=== PATIENT | male | born 1960 | race African-American/Black ===

== ENCOUNTER 2020-11-10 10:27 | Inpatient (IN) | payer OTHER ==
[2020-11-10 11:45] VITALS: BMI 26.6
[2020-11-10] MEDS ORDERED: ONDANSETRON *ODT* 4 MG TABLET SL PRN (12:21)
[2020-11-10] MEDS ORDERED: NICOTINE POLACRILEX 2 MG GUM BUC PRN (12:21)
[2020-11-10] MEDS ORDERED: IBUPROFEN 400 MG TABLET (FP) PO PRN (12:21)
[2020-11-10] MEDS ORDERED: METHOCARBAMOL 500 MG TABLET PO PRN (12:21)
[2020-11-10] MEDS ORDERED: BISMUTH SUBSALICYLATE 262 MG/15 ML BTL PO PRN (12:21)
[2020-11-10] MEDS ORDERED: METHADONE HCL 10 MG TABLET (FOR DETOX USE ONLY) PO ONE (12:21)
[2020-11-10] MEDS ORDERED: ACETAMINOPHEN 325 MG TABLET (FP) PO PRN ×2 (12:21)
[2020-11-10] MEDS ORDERED: MENTHOL/PHENOL 1 EACH UD MM PRN (12:21)
[2020-11-10] MEDS ORDERED: MAGNESIUM CITRATE 300 ML BOTTLE PO PRN (12:21)
[2020-11-10] MEDS ORDERED: MAGNESIUM HYDROX 2400MG/30ML ORAL SUSPENSION 30 ML CUP PO PRN (12:21)
[2020-11-10] MEDS ORDERED: cloNIDine HCL 0.1 MG TABLET PO PRN (12:21)
[2020-11-10] MEDS ORDERED: MAG HYDROX/AL HYDROX/SIMETH 30 ML UNIT-DOSE CUP PO PRN (12:21)
[2020-11-10] MEDS ORDERED: amLODIPine BESYLATE 5 MG TABLET (FP) ONE (12:23)
[2020-11-10] MEDS: NICOTINE 14 MG/24 HOURS TOPICAL PATCH TD SCH (13:41)
[2020-11-10] MEDS: amLODIPine BESYLATE 5 MG TABLET (FP) PO SCH (13:41)
[2020-11-10] MEDS: hydrOXYzine PAMOATE 25 MG CAPSULE (FP) PO SCH ×3 (13:41→22:04)
[2020-11-10 14:28] LABS: HEMATOCRIT 41.1 % (35.4-49); HEMOGLOBIN 13.2 GM/dL (11.7-16.9); MCH 27.6 pg (25.7-33.7); MCHC 32.2 g/dl (32.0-35.9); MEAN CELL VOLUME 85.6 fl (80-96); MEAN PLT VOLUME 8.2 fl (7.5-11.1); PLATELET COUNT 333 K/MM3 (134-434); RBC 4.79 M/mm3 (4.00-5.60); RDW 16.5 % (11.9-15.9); WHITE BLOOD COUNT 6.3 K/mm3 (4.0-10.0)
[2020-11-10 14:30] LABS: POTASSIUM 4.2 mmol/L (3.5-5.1)
[2020-11-10 14:32] LABS: ALBUMIN 3.6 g/dl (3.4-5.0); CALCIUM 9.4 mg/dL (8.5-10.1)
[2020-11-10 14:36] LABS: CREATININE 0.9 mg/dL (0.55-1.3)
[2020-11-10 14:37] LABS: BILIRUBIN,TOTAL 0.2 mg/dL (0.2-1); TOT PROT 7.1 g/dl (6.4-8.2)
[2020-11-10] MEDS: MELATONIN 5 MG TABLETS PO SCH (22:04)
[2020-11-10] MEDS: THIAMINE HCL 100 MG TABLET (FP) PO SCH (22:04)
[2020-11-11] MEDS: hydrOXYzine PAMOATE 25 MG CAPSULE (FP) PO SCH ×5 (05:24→22:11)
[2020-11-11] MEDS ORDERED: METHADONE HCL 5 MG TABLET (FOR DETOX USE ONLY) ONE (09:27)
[2020-11-11] MEDS ORDERED: METHADONE HCL 10 MG TABLET (FOR DETOX USE ONLY) ONE (09:27)
[2020-11-11] MEDS ORDERED: METHADONE (DETOX) 20 MG, METHADONE (DETOX) 5 MG PO ONE (10:00)
[2020-11-11] MEDS: amLODIPine BESYLATE 5 MG TABLET (FP) PO SCH (10:19)
[2020-11-11] MEDS: NICOTINE 14 MG/24 HOURS TOPICAL PATCH TD SCH (10:19)
[2020-11-11] MEDS: PRENATAL VITAMINS W/ FOLIC ACID TABLET (FP) PO SCH (10:19)
[2020-11-11] MEDS ORDERED: cloNIDine HCL 0.1 MG TABLET PO PRN (10:38)
[2020-11-11] MEDS: MELATONIN 5 MG TABLETS PO SCH (22:11)
[2020-11-11] MEDS: THIAMINE HCL 100 MG TABLET (FP) PO SCH (22:11)
[2020-11-12] MEDS: hydrOXYzine PAMOATE 25 MG CAPSULE (FP) PO SCH ×5 (05:42→23:08)
[2020-11-12] MEDS ORDERED: METHADONE HCL 10 MG TABLET (FOR DETOX USE ONLY) PO ONE (10:00)
[2020-11-12] MEDS: NICOTINE 14 MG/24 HOURS TOPICAL PATCH TD SCH (10:29)
[2020-11-12] MEDS: PRENATAL VITAMINS W/ FOLIC ACID TABLET (FP) PO SCH (10:29)
[2020-11-12] MEDS: amLODIPine BESYLATE 10 MG TABLET (FP) PO SCH (10:30)
[2020-11-12] MEDS: guaiFENesin 600 MG TABLET.ER (FP) PO SCH ×2 (15:34→23:08)
[2020-11-12] MEDS ORDERED: MASKS NR ONE (18:47)
[2020-11-12] MEDS: THIAMINE HCL 100 MG TABLET (FP) PO SCH (23:08)
[2020-11-12] MEDS: MELATONIN 5 MG TABLETS PO SCH (23:08)
[2020-11-13] MEDS: hydrOXYzine PAMOATE 25 MG CAPSULE (FP) PO SCH ×5 (05:28→22:20)
[2020-11-13] MEDS ORDERED: METHADONE HCL 5 MG TABLET (FOR DETOX USE ONLY) ONE (08:40)
[2020-11-13] MEDS ORDERED: METHADONE HCL 10 MG TABLET (FOR DETOX USE ONLY) ONE (08:40)
[2020-11-13] MEDS: amLODIPine BESYLATE 10 MG TABLET (FP) PO SCH (09:19)
[2020-11-13] MEDS: guaiFENesin 600 MG TABLET.ER (FP) PO SCH ×2 (09:19→22:20)
[2020-11-13] MEDS: PRENATAL VITAMINS W/ FOLIC ACID TABLET (FP) PO SCH (09:20)
[2020-11-13] MEDS: NICOTINE 14 MG/24 HOURS TOPICAL PATCH TD SCH (09:20)
[2020-11-13] MEDS ORDERED: METHADONE (DETOX) 10 MG, METHADONE (DETOX) 5 MG PO ONE (10:00)
[2020-11-13] MEDS: THIAMINE HCL 100 MG TABLET (FP) PO SCH (22:20)
[2020-11-13] MEDS: MELATONIN 5 MG TABLETS PO SCH (22:20)
[2020-11-14] MEDS: hydrOXYzine PAMOATE 25 MG CAPSULE (FP) PO SCH ×5 (05:39→22:10)
[2020-11-14] MEDS ORDERED: METHADONE HCL 10 MG TABLET (FOR DETOX USE ONLY) PO ONE (10:00)
[2020-11-14] MEDS: PRENATAL VITAMINS W/ FOLIC ACID TABLET (FP) PO SCH (10:03)
[2020-11-14] MEDS: guaiFENesin 600 MG TABLET.ER (FP) PO SCH ×2 (10:03→22:10)
[2020-11-14] MEDS: amLODIPine BESYLATE 10 MG TABLET (FP) PO SCH (10:03)
[2020-11-14] MEDS: NICOTINE 14 MG/24 HOURS TOPICAL PATCH TD SCH (10:04)
[2020-11-14] MEDS ORDERED: cloNIDine HCL 0.1 MG TABLET PO ONE (13:26)
[2020-11-14] MEDS ORDERED: cloNIDine HCL 0.1 MG TABLET PO PRN (13:27)
[2020-11-14] MEDS: THIAMINE HCL 100 MG TABLET (FP) PO SCH (22:10)
[2020-11-14] MEDS: MELATONIN 5 MG TABLETS PO SCH (22:10)
[2020-11-15] MEDS: hydrOXYzine PAMOATE 25 MG CAPSULE (FP) PO SCH (05:24)
[2020-11-15] MEDS ORDERED: METHADONE HCL 5 MG TABLET (FOR DETOX USE ONLY) PO ONE (06:00)
[2020-11-15 09:30] VITALS: BP 131/68; PULSE 80; TEMP 98
== END 2020-11-15 09:20 | disposition home or self-care (01) | DRG 773 ==
LOC: YASAS 10:27 → Y3N 12:40
PROVIDERS: ADMIT Allergy & Immunology; ATTEND Allergy & Immunology
PROC: HZ2ZZZZ Detoxification Services for Substance Abuse Treatment (ICD-10-PCS; principal; 2020-11-10)
DX: F11.23 Opioid dependence with withdrawal (principal); F14.20 Cocaine dependence, uncomplicated; F17.210 Nicotine dependence, cigarettes, uncomplicated; I10 Essential (primary) hypertension; R73.03 Prediabetes
CPT/HCPCS: 36415; 80053; 82962; 85027; 86780; 93005; 93010; C9803; J0735; U0003